=== PATIENT | male | born 2000 | race Hispanic/Latino ===

== ENCOUNTER 2022-02-10 01:04 | Emergency (ER) | payer OTHER, SELFPAY ==
--- NOTE | 2022-02-10 02:08 | EDPHYS ---
Physician Documentation [facility] Name: Reinier Ott Age: 22 yrs Sex: Male : 2000 Arrival Date: 02/10/2022 Time: 01:07 Bed IW2 Private MD: ED Physician Reinier Chappell HPI: 02/10 02:04 This 22 yrs old Male presents to ER via Unassigned with complaints of Dog Bite.kb 02:04 The patient was bitten on the right arm, by a dog, at a friend's house. Onset: The kb symptoms/episode began/occurred just prior to arrival. Animal information: The animal was reported to appear healthy. Animal's vaccinations are not up to date. The animal is known and can be quarantined. Secondary to the bite the patient reports pain, swelling. Associated signs and symptoms: Pertinent positives: pain at site, swelling at site, tenderness. Severity of symptoms: At their worst the symptoms were moderate, in the emergency department the symptoms are unchanged. The patient has not experienced similar symptoms in the past. The patient has not recently seen a physician. Pt reports he was bitten by his girlfriends dog when he tried to stop it from going into a kennel. Historical: - Allergies: 02:21 No Known Allergies; vc1 - Home Meds: 02:21 None [Active]; vc1 - PMHx: 02:21 None; vc1 - PSHx: 02:21 None; vc1 - Immunization history:: Last tetanus immunization: < 5 years ago. - Social history:: Smoking status: Patient denies any tobacco usage or history of. ROS: 02:04 Constitutional: Negative for fever, chills, and weight loss. kb 02:04 Skin: Positive for abrasion(s), ecchymosis, puncture, swelling, of the right arm. 02:04 All other systems are negative. Exam: 02:04 Constitutional: This is a well developed, well nourished patient who is awake, alert, kb and in no acute distress. Head/Face: Normocephalic, atraumatic. ENT: Moist Mucous membranes Cardiovascular: Regular rate and rhythm with a normal S1 and S2. No gallops, murmurs, or rubs. No pulse deficits. Respiratory: Respirations even and unlabored. No increased work of breathing. Talking in full sentences MS/ Extremity: Pulses equal, no cyanosis. Neurovascular intact. Full, normal range of motion. Neuro: Awake and alert, GCS 15, oriented to person, place, time, and situation. Moves all extremities. Normal gait. Psych: Awake, alert, with orientation to person, place and time. Behavior, mood, and affect are within normal limits. 02:04 Skin: injury, abrasion(s), small abrasion noted, bite(s), superficial, of the right arm. Vital Signs: 02:18 BP 131 / 95; Pulse 84; Resp 20; Temp 99.7; Pulse Ox 100% ; vc1 MDM: 02:04 Patient medically screened. kb 02:04 Data reviewed: vital signs, nurses notes. Data interpreted: Pulse oximetry: on room air kb is 100 %. Interpretation: normal. Counseling: I had a detailed discussion with the patient and/or guardian regarding: the historical points, exam findings, and any diagnostic results supporting the discharge/admit diagnosis, the need for outpatient follow up, a family practitioner, to return to the emergency department if symptoms worsen or persist or if there are any questions or concerns that arise at home. 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 Exp: vc1 06/11/2022. Lot #: [id number]. } Route: IM; Site: right deltoid; Disposition Summary: 02/10/22 02:07 Discharge Ordered Location: Home Condition: Stable kb Diagnosis - Bitten by dog kb Followup: kb - With: Emergency Department - When: As needed - Reason: Worsening of condition Followup: kb - With: Private Physician - When: 2 - 3 days - Reason: Recheck today's complaints, Continuance of care, Re-evaluation by your physician Discharge Instructions: - Discharge Summary Sheet kb - Animal Bite, Adult, [id number] kb Forms: - Medication Reconciliation Form kb - Thank You Letter kb - Antibiotic Education kb - Prescription Opioid Use kb Prescriptions: - Augmentin ES-600 600-42.9 mg/5 mL Oral Suspension for Reconstitution - take 7.2 milliliters by ORAL route every 12 hours for 10 days Max = 875mg/dose; kb 150 milliliter; Refills: 0, Product Selection Permitted Addendum: 02/12/2022 07:16 Co-signature as Attending Physician, Reinier Chappell MD I agree with the assessment and r t plan of care. Signatures: Polina Rawls, SACHIN-C INFORMATION TECHNOLOGY ADMINISTRATOR-Ckdaniel Urias, CHRISTIANA Hendricks RN vc1 Reinier Chappell MD MD rt
[2022-02-10] MEDS ORDERED: HYDROCOD 2.5mg-ACETAMIN 108mg/5mL Soln ONE (02:11)
[2022-02-10] MEDS ORDERED: TETANUS & DIPHTHERIA TOX,ADULT 0.5 ML VIAL ONE (02:14)
--- NOTE | 2022-02-10 02:22 | ER ---
Nurse's Notes [facility] Name: Reinier Ott Age: 22 yrs Sex: Male : 2000 Arrival Date: 02/10/2022 Time: 01:07 Bed IW2 Private MD: Diagnosis: Bitten by dog Presentation: 02/10 02:18 Chief complaint: Patient states: "I got bit by my girlfriends dog while we were trying vc1 to put it up in the kennel". Coronavirus screen: At this time, the client does not indicate any symptoms associated with coronavirus-19. Ebola Screen: No symptoms or risks identified at this time. Initial Sepsis Screen: Does the patient meet any 2 criteria? No. Patient's initial sepsis screen is negative. Does the patient have a suspected source of infection? Yes: Skin breakdown/wound. Risk Assessment: Do you want to hurt yourself or someone else? Patient reports no desire to harm self or others. Onset of symptoms was February 10, 2022. 02:18 Method Of Arrival: Ambulatory vc1 02:18 Acuity: K[place] 4 vc1 Triage Assessment: 02:19 Bite description: bite sustained to right arm by a dog, animal information: vc1 vaccination(s) is not up to date. General: Appears in no apparent distress. uncomfortable, Behavior is calm, cooperative, appropriate for age. Pain: Complains of pain in right arm. Historical: - Allergies: 02:21 No Known Allergies; vc1 - Home Meds: 02:21 None [Active]; vc1 - PMHx: 02:21 None; vc1 - PSHx: 02:21 None; vc1 - Immunization history:: Last tetanus immunization: < 5 years ago. - Social history:: Smoking status: Patient denies any tobacco usage or history of. Screenin:19 Abuse screen: Denies threats or abuse. Nutritional screening: No deficits noted. vc1 Tuberculosis screening: No symptoms or risk factors identified. Fall Risk None identified. Vital Signs: 02:18 BP 131 / 95; Pulse 84; Resp 20; Temp 99.7; Pulse Ox 100% ; vc1 ED Course: 01:07 Patient arrived in ED. bp1 02:04 Polina Rawls FNP-C is PHCP. kb 02:04 Reinier Chappell MD is Attending Physician. kb 02:19 Triage completed. vc1 02:20 Arm band placed on right wrist. vc1 02:20 No provider procedures requiring assistance completed. Patient did not have IV access vc1 during this emergency room visit. 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 Exp: vc1 06/11/2022. Lot #: [id number]. } Route: IM; Site: right deltoid; Medication: 02:20 Vaccine Information Statement (VIS) provided today. Questions and/or concerns vc1 addressed. VIS edition date: October 30, 2020. Outcome: 02:07 Discharge ordered by . kb 02:21 Discharged to home ambulatory. vc1 02:21 Condition: good 02:21 Discharge instructions given to patient. 02:21 Instructed on discharge instructions, follow up and referral plans. medication usage, Demonstrated understanding of instructions, follow-up care, medications, Prescriptions given X 1. 02:21 Patient left the ED. vc1 Signatures: Polina Rawls, NATIONAL EXPANSION RECRUITER-C NATIONAL EXPANSION RECRUITER-Ckb Maria Alejandra Moctezuma Vanessa, RN RN vc1
[2022-02-10 02:26] VITALS: BP 131/95; TEMP 99.7; O2SAT 100
== END 2022-02-10 02:21 | disposition home or self-care (01) ==
LOC: ER 01:04
DX: S51.851A Open bite of right forearm, initial encounter (principal); W54.0XXA Bitten by dog, initial encounter; Y93.89 Activity, other specified; Y92.019 Unspecified place in single-family (private) house as the place of occurrence of the external cause; Z23 Encounter for immunization
CPT/HCPCS: 90471; 90714; 99283